=== PATIENT | male | born 1980 | race Caucasian/White ===

== ENCOUNTER 2021-05-19 12:34 | Emergency (ER) | payer OTHER ==
[2021-05-19 12:49] VITALS: BMI 28.1
[2021-05-19] MEDS ORDERED: CASIRIVIMAB/IMDEVIMAB 10 ML in SODIUM CHLORIDE 100 ML IVPB ONE (14:15)
[2021-05-19 14:44] LABS: HEMATOCRIT 40.6 % (35.4-49); HEMOGLOBIN 13.8 GM/dL (11.7-16.9); MEAN CELL VOLUME 85.1 fl (80-96); MEAN PLT VOLUME 9.3 fl (7.5-11.1); PLATELET COUNT 289 10^3/uL (134-434); RBC 4.77 M/mm3 (4.00-5.60); RDW 13.6 % (11.9-15.9); WHITE BLOOD COUNT 9.5 K/mm3 (4.0-10.0)
[2021-05-19 15:11] VITALS: TEMP 98
[2021-05-19 15:17] LABS: CALCIUM 9.3 mg/dL (8.5-10.1)
[2021-05-19 15:18] LABS: BLOOD UREA NITROGEN 14.6 mg/dL (7-18)
[2021-05-19 16:22] VITALS: BP 121/68; PULSE 75
== END 2021-05-19 16:25 | disposition home or self-care (01) ==
LOC: JCOVINFU 12:34
DX: U07.1 COVID-19 (principal)
CPT/HCPCS: 36415; 80048; 85027; 99284-25; Q0240